=== PATIENT | male | born 1985 | race Two or more races ===

== ENCOUNTER 2017-09-25 11:51 | Emergency (ER) | payer SELFPAY, OTHER ==
[2017-09-25] MEDS: LIDOCAINE WITH 8.4% SOD BICARB 3 ML DISP.SYRIN. INJ (12:15)
== END 2017-09-25 14:07 | disposition home or self-care (01) ==
LOC: ER 11:51
DX: S61.210A Laceration without foreign body of right index finger without damage to nail, initial encounter (principal); W20.8XXA Other cause of strike by thrown, projected or falling object, initial encounter; Y93.G3 Activity, cooking and baking; Y92.009 Unspecified place in unspecified non-institutional (private) residence as the place of occurrence of the external cause; Y99.8 Other external cause status
CPT/HCPCS: 73130; 99284